=== PATIENT | male | born 2000 | race Caucasian/White ===

== ENCOUNTER 2023-09-30 11:35 | Emergency (ER) | payer SELFPAY ==
[~2023-09-30] VITALS: Ht 175.3 cm; Wt 81.0 kg
[2023-09-30 12:01] VITALS: TEMP 98.2; O2SAT 100
[2023-09-30] MEDS: TETRACAINE 0.5% OPHTH DROPS 4ML BOTHEYE ONE (12:45)
[2023-09-30] MEDS: FLUORESCEIN SODIUM 1MG/STRIP BOTHEYE ONE (12:45)
[2023-09-30] MEDS ORDERED: OCUFLX RIGHTEYE (13:43)
[2023-09-30 13:44] VITALS: BP 110/60; PULSE 70; RESP 15
== END 2023-09-30 13:47 | disposition home or self-care (01) ==
LOC: ER 11:35
DX: H10.9 Unspecified conjunctivitis (principal)
CPT/HCPCS: 99283